=== PATIENT | male | born 1985 | race Caucasian/White ===

== ENCOUNTER 2017-11-13 07:58 | Emergency (ER) | payer MEDICAID ==
[~2017-11-13] VITALS: Ht 188 cm; Wt 127.0 kg
[~2017-11-13 07:58] MED LIST: ALLO-119 PO; ALLO100T70 PO; AMOX-362 PO; AMOX-559 PO; AMOX250S91 PO; ANXIETY; ANXIETY PO; ARIP2TAB9 PO; AZIT-1 PO; AZIT-18 PO; AZIT500T47 PO; BEN5 PO; BENZ100C4 PO; BUS5 PO; BUSP10TA95 PO; CEPH500C24 PO; CIPR-344 PO; CODE118S5 PO; DOXY-229 PO; HYDR-4240 PO; HYDR-6045 RC; HYDR25CA13 PO; HYDR50CA47 PO; IBUP-56 PO; IBUP200C71 PO; INDO-1 PO; INDO25 PO; INDO50CA92 PO; LOR5/325 PO; NAPR500T75 PO; NO ROUTINE MEDS; OLAN10TA21 PO; OLAN15TA19 PO; OMEP-137 PO; ONDA8TAB94 PO; OXYC-865 PO; PANT40TA65 PO; PER PO; PRE10 PO; PRED20TA6 PO; PROL PO; RISP-29 PO; RISP0.5T82 PO; ROBC PO; SERT-1 PO; SERT-173 PO; SERT20OR6 PO; TRAM-420 PO
--- NOTE | 2017-11-13 08:06 | ER Report ---
History and Physical Time Seen By MD: 08:06 HPI/ROS CC: Nausea vomiting HPI: 32-year-old male, Past medical history includes gouty arthritis bronchitis schizophrenia and GERD facial contusions and dental caries sinusitis presents to the emergency department and states that he's having nausea and vomiting from the coughing that he has persistently. He states that he was here approximately a month ago and was given Tessalon Perles. He states that the Tessalon Perles have made him nauseated. He is afebrile. He does not have any discharge from his nose. He is not experiencing an upper respiratory tract infection at this time. He states that he is slightly short of breath and which has been ongoing for the last month since he came in for his upper respiratory tract infection. He has not followed up with his PCP. He denies a productive cough. He denies any diarrhea. No fever chills. He is rating his pain scale as a 5 out of 10. No alleviating factors. Activity makes it worse. ROS: 12 point review of systems essentially negative other than what's mentioned in history of present illness. NURSES AND OLD MEDICAL RECORDS: Reviewed PMH: Reviewed SURGICAL HX: Reviewed FAMILY HX: Noncontributory SOCIAL HX: Lives at home denies smoking alcohol or illicit drugs. VITAL SIGNS: Reviewed CONSTITUTIONAL: 32-year-old male in minimal distress. PHYSICAL EXAM: HEENT: Pupils equal round reactive to light and accommodate, EOMI, tympanic membranes pearly white umbo present with good light reflex. Lips dry mucous membranes moist gums nonbleeding uvula midline and rises equally with phonation, oropharynx noninjected, teeth intact. NECK: Neck supple, thyroid not appreciated, anterior and posterior cervical lymphadenopathy not appreciated. Trachea midline and rises equally with phonation. CARDIAC: S1-S2 regular rate rhythm no murmurs rubs or gallops. LUNGS: Lungs clear bilaterally posteriorly in all tirado. Good air movement. ABDOMEN: Abdomen soft, nondistended, bowel sounds active in all 4 quadrants, no bruits noted, no CVA tenderness. MUSCULOSKELETAL: Strength 5 out of 5 x 4 extremities, no deformities noted. NEUROLOGIC: Patient alert and oriented by 3 Allergies: Coded Allergies: No Known Drug Allergies (Verified , 11/13/17) Home Meds Active Scripts Ondansetron (ZOFRAN ODT) 4 Mg Tab.rapdis, 8 MG PO Q6H Y for NAUSEA/VOMITING, # 20 TAB.RENA 0 Refills Prov:KECIA FRANCO MD 11/13/17 Benzonatate 100 Mg Cap (TESSALON PERLE 100 MG CAP) 100 Mg Capsule, 100 MG PO TID Y for COUGH, #15 CAP Prov:DI AL PA-C 10/29/17 Azithromycin (ZITHROMAX) 250 Mg Tablet, 0 PO QDAY, #6 TAB Prov:DI AL PA-C 10/29/17 Reported Medications Ibuprofen (IBUPROFEN) 200 Mg Tablet, 3-4 TAB PO Q8H Y for pain, #30 TAB 09/22/17 Buspirone Hcl (BUSPIRONE HCL) 10 Mg Tablet, 5 MG PO TID, TAB 03/16/17 Olanzapine (ZYPREXA) 10 Mg Tablet, 10 MG PO QHS 07/11/16 Sertraline Hcl (ZOLOFT) 50 Mg Tablet, 3 TAB PO QDAY, TAB 07/11/16 Discontinued Scripts Tramadol Hcl (TRAMADOL HCL) 50 Mg Tablet, 1 TAB PO Q6H Y for PAIN, #9 TAB Prov:HAY MOMIN DO 09/21/17 Hx Smoking: No Smoking Status: Never Smoker, Smoker: Status Unknown, Former Smoker Exposure to Second Hand Smoke?: No Hx Substance Use Disorder: No Hx Alcohol Use: No Constitutional Vital Sign - Last 24 Hours 11/13/17 08:05 Temp 98.5 Pulse 113 Resp 14 B/P (MAP) 142/105 Pulse Ox 94 O2 Delivery Room Air Medical Decision Making ED Course/Re-evaluation ED Course I discussed with the patient that his ears and throat nasal passages did not appear to be infected. Lungs are clear. I will give him Zofran for the nausea needs to follow-up with his PCP. Patient with a plan and agreement. Re-evaluation Medical decision making includes viral upper respiratory tract infection, nausea secondary to her Tessalon Perles, pneumonia. This most likely is nausea secondary to Tessalon Perles. Decision to Disposition Date: Nov 13, 2017 Decision to Disposition Time: 08:15 Depart Departure Latest Vital Signs Vital Signs Date Time Temp Pulse Resp B/P (MAP) Pulse Ox O2 Delivery O2 Flow Rate FiO2 11/13/17 08:05 98.5 113 14 142/105 94 Room Air Impression: Primary Impression: Nausea Condition: Condition Unchanged Disposition: HOME OR SELF-CARE Referrals: CARLITOS GUERRERO MD (PCP) New Scripts Ondansetron (ZOFRAN ODT) 4 Mg Tab.rapdis 8 MG PO Q6H Y for NAUSEA/VOMITING, #20 TAB.RENA 0 Refills Prov: KECIA FRANCO MD 11/13/17 Patient Instructions: Acute Nausea and Vomiting (ED) Additional Instructions: You have been Given Zofran take as directed. Follow-up with your PCP. I and the staff wanted to thank you for allowing us to take care of your needs today in the emergency department at [facility]. We have tried to answer all of your questions and concerns. Please feel free to return to the emergency department for any further concerns or unanswered questions. KECIA FRANCO MD Nov 13, 2017 08:06
[2017-11-13] MEDS ORDERED: ONDA4TAB PO (08:17)
[2017-11-13 08:20] VITALS: BP 134/97
== END 2017-11-13 08:21 | disposition home or self-care (01) ==
LOC: ER 08:20
DX: R11.0 Nausea (principal)
CPT/HCPCS: 99282

== ENCOUNTER → 2018-02-27 | Outpatient (CLI) | payer MEDICAID ==
[~2018-02-27] MED LIST changes: -BEN5 PO; +BENZ0.5T19 PO; +FLUT16SP19 NS; +ONDA4TAB PO
== END ==
LOC: LAB 15:49
PROVIDERS: ATTEND Internal Medicine
DX: J02.9 Acute pharyngitis, unspecified (principal); J06.9 Acute upper respiratory infection, unspecified
CPT/HCPCS: 87070

== ENCOUNTER 2018-03-12 14:02 | Emergency (ER) | payer MEDICAID ==
--- NOTE | 2018-03-12 14:11 | ER Report ---
History and Physical Time Seen By MD: 14:10 HPI/ROS CHIEF COMPLAINT: Right foot pain and swelling, fevers HISTORY OF PRESENT ILLNESS: 32-year-old male patient presents to emergency room with complaint of right foot pain. Patient states that he has been having pain since he woke up this morning. He states when he woke up his right foot was swollen and had a shot into it. Patient states that he's been having significant amounts pain since then. He denies having any injury. He states that his dog to sleep on the bed was concerned they may have put the foot and awkward position. Patient denies any trauma to the foot. He does have a history of gout in the past. Patient denies having any nausea, vomiting or diarrhea. Patient states he has had a fever up to 100.8 recently. He states that he is having some sinus problems. REVIEW OF SYSTEMS: Respiratory: No cough, no dyspnea. Cardiovascular: No chest pain, no palpitations. Gastrointestinal: No vomiting, no abdominal pain. Musculoskeletal: As noted above Allergies: Coded Allergies: No Known Drug Allergies (Verified , 03/12/18) Home Meds Active Scripts Amoxicillin/Pot Clav 875-125 Mg Tab (AUGMENTIN 875-125 TABLET) 1 Each Tablet, 1 TAB PO Q12H, #20 TAB Prov:AGUSTÍN HIRSCH [facility] 03/12/18 Ketorolac Tromethamine (KETOROLAC TROMETHAMINE) 10 Mg Tab, 10 MG PO Q6H, #20 TAB Prov:AGUSTÍN HIRSCH 03/12/18 Fluticasone Prop 50 Mcg Ns (FLONASE 50 MCG NS) 16 Gm [place].susp, 2 SPRAYS NS QDAY, #1 BOT 3 Refills Prov:CARLITOS GUERRERO MD 02/27/18 Reported Medications Buspirone Hcl (BUSPIRONE HCL) 10 Mg Tablet, 5 MG PO TID, TAB 03/16/17 Olanzapine (ZYPREXA) 10 Mg Tablet, 10 MG PO QHS 07/11/16 Sertraline Hcl (ZOLOFT) 50 Mg Tablet, 3 TAB PO QDAY, TAB 07/11/16 Discontinued Scripts Ondansetron (ZOFRAN ODT) 4 Mg Tab.rapdis, 8 MG PO Q6H Y for NAUSEA/VOMITING, # 20 TAB.RENA 0 Refills Prov:CARLITOS GUERRERO MD 02/27/18 Benzonatate 100 Mg Cap (TESSALON PERLE 100 MG CAP) 100 Mg Capsule, 100 MG PO TID Y for COUGH, #15 CAP Prov:CARLITOS GUERRERO MD 02/27/18 Past Medical/Surgical History Patient has a past medical history of migraines, hypertension, asthma, gout, anxiety, depression, bipolar, suicide attempt. Patient denies any surgical history. Reviewed Nurses Notes: Yes Hx Smoking: No Smoking Status: Never Smoker, Smoker: Status Unknown, Former Smoker Exposure to Second Hand Smoke?: No Hx Substance Use Disorder: No Hx Alcohol Use: No Constitutional Vital Sign - Last 24 Hours 03/12/18 03/12/18 03/12/18 03/12/18 14:08 14:09 15:02 15:32 Temp 94.6 Pulse 105 85 84 Resp 22 B/P (MAP) 132/91 132/91 (105) Pulse Ox 98 91 96 O2 Delivery Room Air 03/12/18 03/12/18 15:41 15:43 Pulse 96 B/P (MAP) 126/79 (95) 126/79 (95) Pulse Ox 94 O2 Delivery Room Air Physical Exam General Appearance: The patient is alert, has no immediate need for airway protection and no current signs of toxicity. Respiratory: Chest is non tender, lungs are clear to auscultation. Cardiac: regular rate and rhythm Gastrointestinal: Abdomen is soft and non tender, no masses, bowel sounds normal. Musculoskeletal: Neck: Neck is supple and non tender. Extremities have full range of motion and are non tender. Patient has tenderness to the lateral aspect of the right foot, there is no swelling or bruising noted. Skin: No rashes or lesions. DIFFERENTIAL DIAGNOSIS: After history and physical exam differential diagnosis was considered for contusion, sprain, gout flare, fracture, sinusitis, pneumonia , urinary tract infection. Medical Decision Making Data Points Result Diagram: 03/12/18 1428 03/12/18 1428 Laboratory Hematology Test 03/12/18 14:28 Red Blood Count 6.03 M/uL (4.00-5.60) Mean Corpuscular Volume 77.9 fL (80.0-96.0) Mean Corpuscular Hemoglobin 26.8 pg (26.0-33.0) Mean Corpuscular Hemoglobin Concent 34.4 g/dL (32.0-36.0) Red Cell Distribution Width 14.3 % (11.5-14.5) Mean Platelet Volume 8.4 fL (7.2-11.1) Neutrophils (%) (Auto) 72.9 % (39.4-72.5) Lymphocytes (%) (Auto) 16.8 % (17.6-49.6) Monocytes (%) (Auto) 8.5 % (4.1-12.4) Eosinophils (%) (Auto) 1.1 % (0.4-6.7) Basophils (%) (Auto) 0.7 % (0.3-1.4) Nucleated RBC Relative Count (auto) 0.5 /100WBC Neutrophils # (Auto) 10.2 K/uL (2.0-7.4) Lymphocytes # (Auto) 2.3 K/uL (1.3-3.6) Monocytes # (Auto) 1.2 K/uL (0.3-1.0) Eosinophils # (Auto) 0.2 K/uL (0.0-0.5) Basophils # (Auto) 0.1 K/uL (0.0-0.1) Nucleated RBC Absolute Count (auto) 0.06 K/uL Peripheral Blood Smear No Y/N Sodium Level 140 mmol/L (137-145) Potassium Level 4.1 mmol/L (3.5-5.0) Chloride Level 101 mmol/L (98-107) Carbon Dioxide Level 24 mmol/L (22-30) Blood Urea Nitrogen 10 mg/dl (9-21) Creatinine 0.90 mg/dl (0.66-1.25) Glomerular Filtration Rate Calc > 60.0 Random Glucose 144 mg/dl (75-110) Calcium Level 9.9 mg/dl (8.4-10.2) Total Bilirubin 1.0 mg/dl (0.2-1.3) Aspartate Amino Transf (AST/SGOT) 28 U/L (0-35) Alanine Aminotransferase (ALT/SGPT) 46 U/L (0-56) Alkaline Phosphatase 115 U/L (0-126) Total Protein 8.0 gm/dl (6.3-8.2) Albumin 4.4 g/dl (3.5-5.0) Chemistry Test 03/12/18 14:28 White Blood Count 14.0 k/uL (4.5-11.0) Red Blood Count 6.03 M/uL (4.00-5.60) Hemoglobin 16.2 g/dL (14.0-18.0) Hematocrit 47.0 % (42.0-52.0) Mean Corpuscular Volume 77.9 fL (80.0-96.0) Mean Corpuscular Hemoglobin 26.8 pg (26.0-33.0) Mean Corpuscular Hemoglobin Concent 34.4 g/dL (32.0-36.0) Red Cell Distribution Width 14.3 % (11.5-14.5) Platelet Count 258 K/uL (150-450) Mean Platelet Volume 8.4 fL (7.2-11.1) Neutrophils (%) (Auto) 72.9 % (39.4-72.5) Lymphocytes (%) (Auto) 16.8 % (17.6-49.6) Monocytes (%) (Auto) 8.5 % (4.1-12.4) Eosinophils (%) (Auto) 1.1 % (0.4-6.7) Basophils (%) (Auto) 0.7 % (0.3-1.4) Nucleated RBC Relative Count (auto) 0.5 /100WBC Neutrophils # (Auto) 10.2 K/uL (2.0-7.4) Lymphocytes # (Auto) 2.3 K/uL (1.3-3.6) Monocytes # (Auto) 1.2 K/uL (0.3-1.0) Eosinophils # (Auto) 0.2 K/uL (0.0-0.5) Basophils # (Auto) 0.1 K/uL (0.0-0.1) Nucleated RBC Absolute Count (auto) 0.06 K/uL Peripheral Blood Smear No Y/N Glomerular Filtration Rate Calc > 60.0 Calcium Level 9.9 mg/dl (8.4-10.2) Total Bilirubin 1.0 mg/dl (0.2-1.3) Aspartate Amino Transf (AST/SGOT) 28 U/L (0-35) Alanine Aminotransferase (ALT/SGPT) 46 U/L (0-56) Alkaline Phosphatase 115 U/L (0-126) Total Protein 8.0 gm/dl (6.3-8.2) Albumin 4.4 g/dl (3.5-5.0) EKG/Imaging Imaging 2 VIEWS CHEST INDICATION: Fever COMPARISON: 10/29/2017. FINDINGS: Cardiomediastinal silhouette and pulmonary vessels within normal limits. There is no focal infiltrate or lobar consolidation. There is no pneumothorax or pleural effusion. No nodule. Upper abdomen is unremarkable. No acute bony abnormality. IMPRESSION: 1. No acute cardiopulmonary process. Report Dictated By: Tk Santizo at 03/12/2018 3:14 PM Report E-Signed By: Tk Santizo at 03/12/2018 3:16 PM FOOT 3 VIEW RIGHT Indication: Right foot pain and swelling. Comparison: 09/21/2014. Findings: 3 views of the right foot were obtained. No acute fracture or dislocation. Benign stable bone island in the distal second metatarsal and a small bone island in distal tibia. No other bony lesions. No appreciable degenerative changes. No periosteal abnormality. Soft tissues show no radiopaque foreign body. IMPRESSION: 1.No acute osseous abnormality of the right foot Report Dictated By: Tk Santizo at 03/12/2018 3:16 PM Report E-Signed By: Tk Santizo at 03/12/2018 3:19 PM ED Course/Re-evaluation ED Course Patient was admitted to exam room, history and physical were obtained. Differential diagnoses were considered. On examination lungs are clear, heart is regular, there is no obvious swelling, erythema noted to the right foot. With complaint of fevers a chest x-ray, CBC, CMP were done. The imaging results were negative, the labs showed a white count of 14,000 with left shift. X-ray of the right foot showed no acute fractures. I discussed the findings with the patient. I believe this is likely a sinusitis with right foot pain. The foot pain could very well be secondary to gout. We will go ahead and treat the foot pain with Toradol and treat the sinusitis with Augmentin. Patient and his mother both verbalized understanding and agreement with plan. He is follow-up with his primary care provider in the next week. Decision to Disposition Date: Mar 12, 2018 Decision to Disposition Time: 15:29 Depart Departure Latest Vital Signs Vital Signs Date Time Temp Pulse Resp B/P (MAP) Pulse Ox O2 Delivery O2 Flow Rate FiO2 03/12/18 15:43 96 126/79 (95) 94 Room Air 03/12/18 14:08 94.6 22 Impression: Primary Impression: Foot pain Additional Impression: Sinusitis, acute Condition: Improved Disposition: HOME OR SELF-CARE Referrals: CARLITOS GUERRERO MD (PCP) New Scripts Amoxicillin/Pot Clav 875-125 Mg Tab (AUGMENTIN 875-125 TABLET) 1 Each Tablet 1 TAB PO Q12H, #20 TAB Prov: AGUSTÍN HIRSCH 03/12/18 Ketorolac Tromethamine (KETOROLAC TROMETHAMINE) 10 Mg Tab 10 MG PO Q6H, #20 TAB Prov: AGUSTÍN HIRSCH 03/12/18 Patient Instructions: Sinusitis (ED) Additional Instructions: Increase fluid intake. Get plenty of rest. Limit activity by pain. Wear the post-op shoe when you are moving around. Ice the foot 2-3 times a day. Take Decongestant of choice. Don't take any Aleve, Ibuprofen or Motrin in addition to the Toradol. You may take Tylenol as needed for pain, but must be 3000mg or less a day. Problem Qualifiers Primary Impression: Foot pain Laterality: right Qualified Codes: M79.671 - Pain in right foot Additional Impression: Sinusitis, acute Sinusitis location: maxillary Recurrence: non-recurrent Qualified Codes: J01.00 - Acute maxillary sinusitis, unspecified AGUSTÍN HIRSCH Mar 12, 2018 14:11
[2018-03-12 14:34] LABS: PLATELET COUNT, AUTOMATED 258 K/uL (150-450)
--- NOTE | 2018-03-12 15:20 | RADIOLOGY IMAGING REPORT ---
FACILITY: [facility] [place] PATIENT NAME: Jermaine Frederick : 1985 MR: [id number] V: [id number] EXAM DATE: ORDERING PHYSICIAN: AGUSTÍN HIRSCH TECHNOLOGIST: Location: [facility] [place] Patient: Jermaine Frederick : 1985 Visit/Account:[id number] Date of Sevice: 03/12/2018 2 VIEWS CHEST INDICATION: Fever COMPARISON: 10/29/2017. FINDINGS: Cardiomediastinal silhouette and pulmonary vessels within normal limits. There is no focal infiltrate or lobar consolidation. There is no pneumothorax or pleural effusion. No nodule. Upper abdomen is unremarkable. No acute bony abnormality. IMPRESSION: 1. No acute cardiopulmonary process. Report Dictated By: Tk Santizo at 03/12/2018 3:14 PM Report E-Signed By: Tk Santizo at 03/12/2018 3:16 PM WSN:[id number]
--- NOTE | 2018-03-12 15:23 | RADIOLOGY IMAGING REPORT ---
FACILITY: [facility] - [place], [place] PATIENT NAME: Jermaine Frdeerick : 1985 MR: [id number] V: [id number] EXAM DATE: ORDERING PHYSICIAN: AGUSTÍN HIRSCH TECHNOLOGIST: Location: [facility] Patient: Jermaine Frederick : 1985 Visit/Account:[id number] Date of Sevice: 03/12/2018 FOOT 3 VIEW RIGHT Indication: Right foot pain and swelling. Comparison: 09/21/2014. Findings: 3 views of the right foot were obtained. No acute fracture or dislocation. Benign stable bone island in the distal second metatarsal and a sma ll bone island in distal tibia. No other bony lesions. No appreciable degenerative changes. No perios teal abnormality. Soft tissues show no radiopaque foreign body. IMPRESSION: 1.No acute osseous abnormality of the right foot Report Dictated By: Tk Santizo at 03/12/2018 3:16 PM Report E-Signed By: Tk Santizo at 03/12/2018 3:19 PM WSN:[id number]
[2018-03-12] MEDS ORDERED: KET10 PO (15:27)
[2018-03-12] MEDS ORDERED: AMOX-559 PO (15:27)
[2018-03-12 15:43] VITALS: BP 126/79
== END 2018-03-12 15:45 | disposition home or self-care (01) ==
LOC: ER 14:07
DX: J01.00 Acute maxillary sinusitis, unspecified (principal); M79.641 Pain in right hand
CPT/HCPCS: 71046; 82040; 82247; 82310; 82374; 82435; 82565; 82947; 84075; 84132; 84155; 84295; 84450; 84460; 84520; 85025; 99283

== ENCOUNTER 2018-06-02 20:35 | Emergency (ER) | payer MEDICAID ==
[~2018-06-02 20:35] MED LIST changes: +IBUP-136 PO; -IBUP200C71 PO; +INDO-23 PO; -INDO50CA92 PO; +KET10 PO; -PROL PO; +PROM6.2522 PO
[2018-06-02 20:38] VITALS: BP 134/99
--- NOTE | 2018-06-02 20:38 | ER Report ---
History and Physical Time Seen By MD: 20:36 HPI/ROS CHIEF COMPLAINT: Right foot swelling and pain HISTORY OF PRESENT ILLNESS: 32-year-old male presents ambulatory to the ER complaining of right foot swelling for several weeks. He states his dog laid down on his foot. His dog weighs 102 pounds. He states he sprained his ankle and sustained crushing injury to his foot. It is swelled up and not gone down. He continues to have pain in his foot. Patient does have a history of gout. He states this feels different. Usually gout affects his great toe. Patient notes no pain in his knee. He denies other injuries. He notes no erythema or warmth. He notes significant pain in the 3rd, 4th and 5th digits. Allergies: Coded Allergies: No Known Drug Allergies (Verified , 03/12/18) Home Meds Active Scripts Prednisone 10 Mg Tab (PREDNISONE 10 MG TAB) 10 Mg Tablet, 10 MG PO QDAY Y for reduce inflammation, #7 1 tab daily for 7 days Prov:HAY MOMIN DO 06/02/18 Fluticasone Prop 50 Mcg Ns (FLONASE 50 MCG NS) 16 Gm [place].susp, 2 SPRAYS NS QDAY, #1 BOT 3 Refills Prov:CARLITOS GUERRERO MD 02/27/18 Reported Medications Buspirone Hcl (BUSPIRONE HCL) 10 Mg Tablet, 5 MG PO TID, TAB 03/16/17 Olanzapine (ZYPREXA) 10 Mg Tablet, 10 MG PO QHS 07/11/16 Sertraline Hcl (ZOLOFT) 50 Mg Tablet, 3 TAB PO QDAY, TAB 07/11/16 Discontinued Scripts Amoxicillin/Pot Clav 875-125 Mg Tab (AUGMENTIN 875-125 TABLET) 1 Each Tablet, 1 TAB PO Q12H, #20 TAB Prov:AGUSTÍN HIRSCH 03/12/18 Ketorolac Tromethamine (KETOROLAC TROMETHAMINE) 10 Mg Tab, 10 MG PO Q6H, #20 TAB Prov:AGUSTÍN HIRSCH 03/12/18 Reviewed Nurses Notes: Yes Old Medical Records Reviewed: Yes Hx Smoking: No Smoking Status: Never Smoker, Smoker: Status Unknown, Former Smoker Exposure to Second Hand Smoke?: No Hx Substance Use Disorder: No Hx Alcohol Use: No Constitutional Vital Sign - Last 24 Hours 06/02/18 20:38 Temp 98.1 Pulse 109 Resp 16 B/P (MAP) 134/99 Pulse Ox 97 O2 Delivery Room Air Physical Exam General appearance: Alert no distress. Respiratory: Chest is non tender, lungs are clear to auscultation. Cardiac: Regular rate and rhythm Extremities: Examination of the right lower extremity reveals significant soft tissue swelling. There is neurovascularly intact. Lungs in all digits. There is significant pain and tenderness with palpation of the lateral aspect of the entire foot. The ankle is unremarkable on palpation. Achilles tendon is unremarkable on palpation DIFFERENTIAL DIAGNOSIS: After history and physical exam differential diagnosis was considered for sprain, strain, fracture, dislocation, contusion, gout, foot sprain, overuse syndrome Medical Decision Making EKG/Imaging Imaging X-ray: Right foot, 3 views was obtained. I viewed the images myself on the PACS system. My interpretation of the images is: No fracture no dislocation or malalignment. The radiologist interpretation had no clinically significant variation from this interpretation. ED Course/Re-evaluation ED Course Patient was minute to an examination room. H&P was done. The differential diagnoses was considered. On clinical examination. Patient has a swollen right foot. Is extremely tender to palpation. Diagnostic x-rays are unremarkable for obvious fracture. Patient's advised to conservative treatment plan. Patient advised ibuprofen 600 mg 3 times daily and heat to his foot, especially hot soaks. He'll be given a prednisone burst of 10 mg per day for 7 days. Patient advised to follow-up with primary care if unimproved in one week. Decision to Disposition Date: Jun 02, 2018 Decision to Disposition Time: 21:09 Depart Departure Latest Vital Signs Vital Signs Date Time Temp Pulse Resp B/P (MAP) Pulse Ox O2 Delivery O2 Flow Rate FiO2 06/02/18 20:38 98.1 109 16 134/99 97 Room Air Impression: Primary Impression: Right foot sprain Condition: Improved Disposition: HOME OR SELF-CARE Referrals: CARLITOS GUERRERO MD (PCP) New Scripts Prednisone 10 Mg Tab (PREDNISONE 10 MG TAB) 10 Mg Tablet 10 MG PO QDAY Y for reduce inflammation, #7 1 tab daily for 7 days Prov: HAY MOMIN Aleksandar DO 06/02/18 Patient Instructions: Foot Sprain (ED) Additional Instructions: Take ibuprofen 200 mg 3 tablets 3 times a day Elevate your foot Apply a heating pad or perform hot soaks with your foot in a bucket Follow-up with primary care if unimproved in 3-5 days. Problem Qualifiers Primary Impression: Right foot sprain Encounter type: initial encounter Qualified Codes: S93.601A - Unspecified sprain of right foot, initial encounter HAY MOMIN DO Jun 02, 2018 20:37
--- NOTE | 2018-06-02 21:10 | RADIOLOGY IMAGING REPORT ---
FACILITY: [facility] PATIENT NAME: Jermaine Frederick : 1985 MR: [id number] V: [id number] EXAM DATE: ORDERING PHYSICIAN: HAY MOMIN TECHNOLOGIST: Location: [facility] Patient: Jermaine Frederick : 1985 Visit/Account:[id number] Date of Sevice: 06/02/2018 EXAMINATION: Right foot radiographs 3 views HISTORY: Injury, swollen. COMPARISON: 03/12/2018. FINDINGS: AP, lateral and oblique views of the right foot are obtained. Bones: No acute fracture. Small enthesophytes at the Achilles insertion on the calcaneus. Unchanged bone island in the second metatarsal. Joint spaces: Negative. Hardware: None. Alignment: Normal. Soft tissues: Negative. IMPRESSION: No acute right foot fracture. Report Dictated By: Matt Fields MD at 06/02/2018 9:03 PM Report E-Signed By: Matt Fields MD at 06/02/2018 9:06 PM WSN:[id number]
[2018-06-02] MEDS ORDERED: PRED-1 PO (21:14)
== END 2018-06-02 21:29 | disposition home or self-care (01) ==
LOC: ER 20:44
DX: S93.601A Unspecified sprain of right foot, initial encounter (principal)
CPT/HCPCS: 99283

== ENCOUNTER → 2018-06-16 | Outpatient (CLI) | payer MEDICAID ==
[~2018-06-16] MED LIST changes: +PRED-1 PO
== END ==
LOC: LAB 14:42
PROVIDERS: ATTEND Nurse Practitioner Primary Care
DX: M54.9 Dorsalgia, unspecified (principal)
CPT/HCPCS: 81001

== ENCOUNTER 2018-07-01 01:40 | Emergency (ER) | payer MEDICAID ==
--- NOTE | 2018-07-01 01:59 | ER Report ---
History and Physical Time Seen By MD: 02:01 HPI/ROS CHIEF COMPLAINT: cough, sinus problems HISTORY OF PRESENT ILLNESS: This is a 32 year old male. He has been having worsening cough. Has finished a course of Augmentin for sinusitis, and now cough is worsening. Coughing so much he is throwing up. Has chest congestion and tightness. Fevers. Denies abdominal pain. Allergies: Coded Allergies: No Known Drug Allergies (Verified , 07/01/18) Home Meds Active Scripts Guaifenesin/Codeine (GUAIFENESIN-CODEINE SYRUP) 5 Ml Syrp, 5 ML PO Q6H Y for COUGH, #120 ML 0 Refills Prov:RAMONE PACHECO MD 07/01/18 Doxycycline Hyclate (DOXYCYCLINE HYCLATE) 100 Mg Tablet, 100 MG PO BID for 10 Days, #20 TAB 0 Refills Prov:RAMONE PACHECO MD 07/01/18 Amoxicillin/Pot Clav 875-125 Mg Tab (AUGMENTIN 875-125 TABLET) 1 Each Tablet, 1 TAB PO BID for 10 Days, #20 TAB 0 Refills Prov:RC NEWMAN DNP, SIGNAL INTELLIGENCE ANALYST-BC 06/16/18 Fluticasone Prop 50 Mcg Ns (FLONASE 50 MCG NS) 16 Gm [place].susp, 2 SPRAYS NS QDAY, #1 BOT 3 Refills Prov:CARLITOS GUERRERO MD 02/27/18 Reported Medications Buspirone Hcl (BUSPIRONE HCL) 10 Mg Tablet, 5 MG PO TID, TAB 03/16/17 Olanzapine (ZYPREXA) 10 Mg Tablet, 10 MG PO QHS 07/11/16 Sertraline Hcl (ZOLOFT) 50 Mg Tablet, 3 TAB PO QDAY, TAB 07/11/16 Reviewed Nurses Notes: Yes Hx Smoking: No Smoking Status: Never Smoker, Smoker: Status Unknown, Former Smoker Exposure to Second Hand Smoke?: No Hx Substance Use Disorder: No Hx Alcohol Use: No Constitutional Vital Sign - Last 24 Hours 07/01/18 07/01/18 07/01/18 07/01/18 01:43 01:55 02:10 02:25 Temp 98.9 Pulse 105 101 102 101 Resp 16 B/P (MAP) 113/93 Pulse Ox 98 95 96 97 O2 Delivery Room Air 8/1807/01/18 07/01/18 07/01/18 02:27 02:30 02:55 03:00 Pulse 93 B/P (MAP) 119/83 (95) 127/94 (105) 120/89 (99) Pulse Ox 93 07/01/18 07/01/18 07/01/18 07/01/18 03:10 03:17 03:22 03:30 Pulse 99 ??? 78 B/P (MAP) 116/91 (99) Pulse Ox 95 93 97 07/01/18 07/01/18 03:37 03:52 Pulse 88 79 Pulse Ox 96 97 Physical Exam General Appearance: The patient is alert. No acute distress. Eyes: Pupils are equal, round. No pallor, injection or icterus. ENT: Mucous membranes are moist. Sinus pressure. Nasal passages very erythematous and inflamed. Post-nasal drainage is thick and purulent. TMs with effusions. Neck: Supple and non tender. Has anterior cervical lymphadenopathy. Respiratory: Lungs with rhonchi, no wheezing or rales. Cardiovascular: Regular rate and rhythm. No murmurs, gallops or rubs. Normal capillary refill. Gastrointestinal: Abdomen is soft and non tender. Nondistended. Normal active bowel sounds. Neurological: Alert and oriented x3. Skin: Warm and diaphoretic. DIFFERENTIAL DIAGNOSIS: After history and physical exam, differential diagnosis was considered for a patient with ongoing symptoms of sinusitis, possibly worsening with pneumonia. Medical Decision Making Data Points Result Diagram: 07/01/1821107/01/18 021 Laboratory Hematology Test 07/01/18 02:12 Red Blood Count 5.83 M/uL (4.00-5.60) Mean Corpuscular Volume 78.6 fL (80.0-96.0) Mean Corpuscular Hemoglobin 27.2 pg (26.0-33.0) Mean Corpuscular Hemoglobin Concent 34.6 g/dL (32.0-36.0) Red Cell Distribution Width 14.7 % (11.5-14.5) Mean Platelet Volume 8.6 fL (7.2-11.1) Neutrophils (%) (Auto) 61.2 % (39.4-72.5) Lymphocytes (%) (Auto) 30.2 % (17.6-49.6) Monocytes (%) (Auto) 6.4 % (4.1-12.4) Eosinophils (%) (Auto) 1.5 % (0.4-6.7) Basophils (%) (Auto) 0.7 % (0.3-1.4) Nucleated RBC Relative Count (auto) 0.1 /100WBC Neutrophils # (Auto) 6.6 K/uL (2.0-7.4) Lymphocytes # (Auto) 3.2 K/uL (1.3-3.6) Monocytes # (Auto) 0.7 K/uL (0.3-1.0) Eosinophils # (Auto) 0.2 K/uL (0.0-0.5) Basophils # (Auto) 0.1 K/uL (0.0-0.1) Nucleated RBC Absolute Count (auto) 0.01 K/uL Erythrocyte Sedimentation Rate 4 mm/HOUR (0-15) Sodium Level 142 mmol/L (137-145) Potassium Level 3.8 mmol/L (3.5-5.0) Chloride Level 101 mmol/L (98-107) Carbon Dioxide Level 27 mmol/L (22-30) Blood Urea Nitrogen 10 mg/dl (9-21) Creatinine 0.90 mg/dl (0.66-1.25) Glomerular Filtration Rate Calc > 60.0 Random Glucose 139 mg/dl (75-110) Lactate 2.7 mmol/L (0.7-2.1) Calcium Level 9.7 mg/dl (8.4-10.2) Total Bilirubin 0.5 mg/dl (0.2-1.3) Aspartate Amino Transf (AST/SGOT) 29 U/L (0-35) Alanine Aminotransferase (ALT/SGPT) 43 U/L (0-56) Alkaline Phosphatase 101 U/L (0-126) Total Protein 7.8 g/dl (6.3-8.2) Albumin 4.8 g/dl (3.5-5.0) Chemistry Test 07/01/18 02:12 White Blood Count 10.7 k/uL (4.5-11.0) Red Blood Count 5.83 M/uL (4.00-5.60) Hemoglobin 15.8 g/dL (14.0-18.0) Hematocrit 45.8 % (42.0-52.0) Mean Corpuscular Volume 78.6 fL (80.0-96.0) Mean Corpuscular Hemoglobin 27.2 pg (26.0-33.0) Mean Corpuscular Hemoglobin Concent 34.6 g/dL (32.0-36.0) Red Cell Distribution Width 14.7 % (11.5-14.5) Platelet Count 252 K/uL (150-450) Mean Platelet Volume 8.6 fL (7.2-11.1) Neutrophils (%) (Auto) 61.2 % (39.4-72.5) Lymphocytes (%) (Auto) 30.2 % (17.6-49.6) Monocytes (%) (Auto) 6.4 % (4.1-12.4) Eosinophils (%) (Auto) 1.5 % (0.4-6.7) Basophils (%) (Auto) 0.7 % (0.3-1.4) Nucleated RBC Relative Count (auto) 0.1 /100WBC Neutrophils # (Auto) 6.6 K/uL (2.0-7.4) Lymphocytes # (Auto) 3.2 K/uL (1.3-3.6) Monocytes # (Auto) 0.7 K/uL (0.3-1.0) Eosinophils # (Auto) 0.2 K/uL (0.0-0.5) Basophils # (Auto) 0.1 K/uL (0.0-0.1) Nucleated RBC Absolute Count (auto) 0.01 K/uL Erythrocyte Sedimentation Rate 4 mm/HOUR (0-15) Glomerular Filtration Rate Calc > 60.0 Lactate 2.7 mmol/L (0.7-2.1) Calcium Level 9.7 mg/dl (8.4-10.2) Total Bilirubin 0.5 mg/dl (0.2-1.3) Aspartate Amino Transf (AST/SGOT) 29 U/L (0-35) Alanine Aminotransferase (ALT/SGPT) 43 U/L (0-56) Alkaline Phosphatase 101 U/L (0-126) Total Protein 7.8 g/dl (6.3-8.2) Albumin 4.8 g/dl (3.5-5.0) EKG/Imaging Imaging HISTORY: Fever. DATE: 07/01/2018 2:44 AM TECHNIQUE: CHEST PA AND LAT COMPARISON: none FINDINGS: The cardiomediastinal silhouette is of normal size and contour. No pleural effusion. No pneumothorax. No consolidation. The lungs are adequately expanded. IMPRESSION: Normal chest. Report Dictated By: Santy Edwards MD at 07/01/2018 2:53 AM ED Course/Re-evaluation ED Course Will start Doxycycline 100mg twice a day and use guaifenesin with codeine for cough. continue with flonase. Add nasal saline. Decision to Disposition Date: Jul 01, 2018 Decision to Disposition Time: 03:42 Depart Departure Latest Vital Signs Vital Signs Date Time Temp Pulse Resp B/P (MAP) Pulse Ox O2 Delivery O2 Flow Rate FiO2 07/01/18 03:52 79 97 07/01/18 03:30 116/91 (99) 07/01/18 01:43 98.9 16 Room Air Impression: Primary Impression: Sinusitis Condition: Condition Unchanged Disposition: HOME OR SELF-CARE Referrals: CARLITOS GUERRERO MD (PCP) New Scripts Guaifenesin/Codeine (GUAIFENESIN-CODEINE SYRUP) 5 Ml Syrp 5 ML PO Q6H Y for COUGH, #120 ML 0 Refills Prov: RAMONE PACHECO MD 07/01/18 Doxycycline Hyclate (DOXYCYCLINE HYCLATE) 100 Mg Tablet 100 MG PO BID for 10 Days, #20 TAB 0 Refills Prov: RAMONE PACHECO MD 07/01/18 Patient Instructions: Sinusitis (ED) Additional Instructions: Take Doxycycline 100mg twice a day for 10 days. Take Guaifenesin with Codeine syrup, 1 teaspoon every 4 hours as needed for cough. Rest and increase fluids for the next few days. Problem Qualifiers Primary Impression: Sinusitis Sinusitis location: unspecified location Chronicity: subacute Qualified Codes: J01.90 - Acute sinusitis, unspecified RAMONE PACHECO MD Jul 01, 2018 01:59
[2018-07-01] MEDS ORDERED: NS(*) 0.9% 1000 ML BAG 1,000 ML IV ONE (02:10)
[2018-07-01] MEDS ORDERED: ONDANSETRON 4 MG/2 ML VIAL IVP ONE (02:10)
[2018-07-01 02:28] LABS: PLATELET COUNT, AUTOMATED 252 K/uL (150-450)
--- NOTE | 2018-07-01 03:21 | RADIOLOGY IMAGING REPORT ---
FACILITY: [facility] - [place] PATIENT NAME: Jermaine Frederick : 1985 MR: [id number] V: [id number] EXAM DATE: ORDERING PHYSICIAN: RAMONE PACHECO TECHNOLOGIST: Location: [facility] [place] Patient: Jermaine Frederick : 1985 Visit/Account:[id number] Date of Sevice: 07/01/2018 HISTORY: Fever. DATE: 07/01/2018 2:44 AM TECHNIQUE: CHEST PA AND LAT COMPARISON: none FINDINGS: The cardiomediastinal silhouette is of normal size and contour. No pleural effusion. No pne umothorax. No consolidation. The lungs are adequately expanded. IMPRESSION: Normal chest. Report Dictated By: Santy Edwards MD at 07/01/2018 2:53 AM Report E-Signed By: Santy Edwards MD at 07/01/2018 2:53 AM WSN:[id number]
[2018-07-01 03:30] VITALS: BP 116/91
[2018-07-01] MEDS ORDERED: ROBC PO (03:45)
[2018-07-01] MEDS ORDERED: DOXY-179 PO (03:45)
[2018-07-01] MEDS ORDERED: guaiFENesin/CODEINE 5 ML UDBTL PO ONE (03:45)
== END 2018-07-01 04:05 | disposition home or self-care (01) ==
LOC: ER 01:50
DX: J01.90 Acute sinusitis, unspecified (principal); R50.9 Fever, unspecified
CPT/HCPCS: 71046; 83605; 85025; 85651; 96361; 96374; 99284; J2405; J7030; 82040; 82247; 82310; 82374; 82435; 82565; 82947; 84075; 84132; 84155; 84295; 84450; 84460; 84520

== ENCOUNTER 2018-07-20 14:28 | Outpatient (RCR) | payer MEDICAID ==
[2018-07-19 16:42] LABS: PLATELET COUNT, AUTOMATED 207 K/uL (150-450)
--- NOTE | 2018-07-19 16:52 | RADIOLOGY IMAGING REPORT ---
FACILITY: [facility] PATIENT NAME: Jermaine Frederick : 1985 MR: [id number] V: [id number] EXAM DATE: ORDERING PHYSICIAN: HARJINDER MCCRAY TECHNOLOGIST: [place] [facility] [place] Patient: Jermaine Frederick : 1985 Visit/Account:[id number] Date of Sevice: 07/19/2018 Exam type: CHEST PA AND LAT History: Cough Comparison: July 01, 2018. Findings: The lungs are free of acute effusions, infiltrates or edema. Cardiac silhouette is normal in size. The trachea is in midline. IMPRESSION: 1. No acute cardiopulmonary process is seen Report Dictated By: Kell Marin MD at 07/19/2018 4:47 PM Report E-Signed By: Kell Marin MD at 07/19/2018 4:48 PM WSN:[id number]
[~2018-07-20 14:28] MED LIST changes: +DOXY-179 PO
--- NOTE | 2018-07-21 10:49 | RADIOLOGY IMAGING REPORT ---
FACILITY: [facility] PATIENT NAME: Jermaine Frederick : 1985 MR: [id number] V: [id number] EXAM DATE: ORDERING PHYSICIAN: HARJINDER MCCRAY TECHNOLOGIST: Location: [facility] - [place] Patient: Jermaine Frederick : 1985 Visit/Account:[id number] Date of Sevice: 07/21/2018 CHEST W/O CONTRAST History: cough TECHNIQUE: Contiguous axial images were performed through the chest to the level of the adrenal gla nds. No IV contrast was administered. Coronal and sagittal reformatting was also performed. Dose Lowe ring Technique One of the following dose optimization techniques was utilized in the performance of this exam: Autom ated exposure control; adjustment of the mA and/or kV according to the patient's size; or use of an i terative reconstruction technique. Specific details can be referenced in the facility's radiology C T exam operational policy. COMPARISON STUDIES: CT and pelvis October 29, 2014. Lungs / Pleura: There is a 2 mm noncalcified nodule immediately adjacent to the major fissure on th e right in the inferior right middle lobe which appears unchanged when compared the prior study There is an additional three mm noncalcified nodule anterolateral aspect right lower lobe also unchan ged. There are several tiny peripheral bulla in posterior aspect of the right lower lobe There is no evidence of pulmonary infiltrates or pleural effusions. The airway appears unremarkable. There appear to be low lung volumes Mediastinum/nodes: negative. Heart and vessels: negative. Musculoskeletal / Body wall: negative. Upper abdomen: Gallbladder is contracted which could be related to a recent meal IMPRESSION: There appear to be low lung volumes however no evidence of acute-appearing pulmonary infiltrates or p leural effusions Two small noncalcified pulmonary nodules in the right lung base appears stable and are of doubtful si gnificance Gallbladder is contracted which could be related to a recent meal Report Dictated By: Kell Marin MD at 07/21/2018 10:36 AM Report E-Signed By: Kell Marin MD at 07/21/2018 10:45 AM WSN:[email or web address]
[2018-07-21] MEDS ORDERED: AZIT-17 PO (14:02)
== END 2018-07-21 18:00 | disposition home or self-care (01) ==
LOC: CT 14:28 → EDSTATUS 14:28 → CT 07-21 18:00
PROVIDERS: ATTEND Emergency Medicine
DX: R05 Cough (principal); R91.1 Solitary pulmonary nodule
CPT/HCPCS: 36415; 71046; 71250; 82040; 82247; 82310; 82374; 82435; 82565; 82947; 84075; 84132; 84155; 84295; 84450; 84460; 84520; 85025; 86140

== ENCOUNTER 2018-07-24 19:49 | Emergency (ER) | payer MEDICAID ==
[~2018-07-24 19:49] MED LIST changes: +AZIT-17 PO
--- NOTE | 2018-07-24 20:02 | ER Report ---
History and Physical Time Seen By MD: 19:59 Hx. of Stated Complaint: patients has coughing, states tongue is swollen and numb, patient states has been vomiting. patient states on z-pack, has been sick, not getting any better. HPI/ROS CHIEF COMPLAINT: coughing and vomiting HISTORY OF PRESENT ILLNESS: This is a 32 year old male. He is having continued problems with cough. Has been on Augmenting, then Doxycycline, no on Azithromycin form cough and possible sinus disease. He has some congestion. Has cough that results in vomiting. Has some history of reflux as well. Recently with a normal chest x-ray and CT scan. Some chest discomfort. No diarrhea or bowel problems. Sometimes feels it is difficult to swallow with feeling of tight throat. REVIEW OF SYSTEMS: Constitutional: No fever or chills. Eyes: No discharge. No vision changes. ENT: As above. Cardiovascular: As above. Respiratory: As above. Gastrointestinal: No abdominal pain. Genitourinary: No dysuria. Musculoskeletal: No musculoskeletal pain. Skin: No rashes. Allergies: Coded Allergies: No Known Drug Allergies (Verified , 07/24/18) Home Meds Active Scripts Ondansetron (ZOFRAN ODT) 4 Mg Tab.rapdis, 4 MG PO Q6H PRN for NAUSEA/VOMITING, #20 TAB.RENA 0 Refills Prov:RAMONE PACHECO MD 07/24/18 Omeprazole (OMEPRAZOLE) 20 Mg Capsule.dr, 1 CAP PO BID, #60 CAP 0 Refills Prov:RAMONE PACHECO MD 07/24/18 Azithromycin (Z-PACK) 250 Mg Tablet, 1-2 TAB PO DIRECTED, #6 DOSE-PACK Take 2 tablets on the first day, then 1 tablet per day for four days. Prov:HARJINDER CARRERA MD 07/21/18 Guaifenesin/Codeine (GUAIFENESIN-CODEINE SYRUP) 5 Ml Syrp, 5 ML PO Q6H PRN for COUGH, #120 ML 0 Refills Prov:RAMONE PACHECO MD 07/01/18 Fluticasone Prop 50 Mcg Ns (FLONASE 50 MCG NS) 16 Gm [place].susp, 2 SPRAYS NS QDAY, #1 BOT 3 Refills Prov:CARLITOS GUERRERO MD 02/27/18 Reported Medications Buspirone Hcl (BUSPIRONE HCL) 10 Mg Tablet, 5 MG PO TID, TAB 03/16/17 Olanzapine (ZYPREXA) 10 Mg Tablet, 10 MG PO QHS 07/11/16 Sertraline Hcl (ZOLOFT) 50 Mg Tablet, 3 TAB PO QDAY, TAB 07/11/16 Discontinued Scripts Doxycycline Hyclate (DOXYCYCLINE HYCLATE) 100 Mg Tablet, 100 MG PO BID for 10 Days, #20 TAB 0 Refills Prov:RAMONE PACHECO MD 07/01/18 Amoxicillin/Pot Clav 875-125 Mg Tab (AUGMENTIN 875-125 TABLET) 1 Each Tablet, 1 TAB PO BID for 10 Days, #20 TAB 0 Refills Prov:RC NEWMAN DNP, ADULT BASIC STUDIES TEACHER-BC 06/16/18 Reviewed Nurses Notes: Yes Hx Smoking: No Smoking Status: Never Smoker, Smoker: Status Unknown, Former Smoker Exposure to Second Hand Smoke?: No Hx Substance Use Disorder: No Hx Alcohol Use: No Constitutional Vital Sign - Last 24 Hours 07/24/18 07/24/18 07/24/18 07/24/18 19:51 19:52 20:00 20:49 Temp 98.8 Pulse 104 100 Resp 16 B/P (MAP) 133/98 (110) 133/98 125/94 (104) Pulse Ox 95 95 O2 Delivery Room Air 07/24/18 07/24/18 07/24/18 21:00 21:19 21:30 Pulse 98 B/P (MAP) 124/81 (95) 122/101 (108) Pulse Ox 95 Physical Exam General Appearance: The patient is alert. No acute distress. Eyes: Pupils are equal, round. No pallor, injection or icterus. Extraocular movements are intact. ENT: Mucous membranes are moist. Normal oral mucosa. Posterior oropharynx with some post-nasal drainage, but is thin and non-purulent. Nasal mucosa is very red and angry appearing on the right side. Normal tympanic membranes, but with bilateral effusions. Neck: Supple and non tender. Respiratory: Lungs are clear to auscultation. Cardiovascular: Regular rate and rhythm. No murmurs, gallops or rubs. Normal capillary refill. Gastrointestinal: Abdomen is soft and non tender. Nondistended. Neurological: Alert and oriented x3. Skin: Warm and dry. No rashes. Musculoskeletal: No musculoskeletal pain. DIFFERENTIAL DIAGNOSIS: After history and physical exam, differential diagnosis was considered for a patient with ongoing concerns about sinusitis, recent workup with negative chest x-ray and CT scan, currently on antibiotic. Other possibilities include ongoing sinus problems, also consider reflux as a possible cause of his symptoms Medical Decision Making Data Points Result Diagram: 07/24/18202007/24/182020 Laboratory Hematology Test 07/24/18 20:21 Red Blood Count 5.65 M/uL (4.00-5.60) Mean Corpuscular Volume 78.2 fL (80.0-96.0) Mean Corpuscular Hemoglobin 27.0 pg (26.0-33.0) Mean Corpuscular Hemoglobin Concent 34.5 g/dL (32.0-36.0) Red Cell Distribution Width 14.5 % (11.5-14.5) Mean Platelet Volume 8.9 fL (7.2-11.1) Neutrophils (%) (Auto) 63.8 % (39.4-72.5) Lymphocytes (%) (Auto) 27.2 % (17.6-49.6) Monocytes (%) (Auto) 7.0 % (4.1-12.4) Eosinophils (%) (Auto) 1.4 % (0.4-6.7) Basophils (%) (Auto) 0.6 % (0.3-1.4) Nucleated RBC Relative Count (auto) 0.0 /100WBC Neutrophils # (Auto) 8.3 K/uL (2.0-7.4) Lymphocytes # (Auto) 3.5 K/uL (1.3-3.6) Monocytes # (Auto) 0.9 K/uL (0.3-1.0) Eosinophils # (Auto) 0.2 K/uL (0.0-0.5) Basophils # (Auto) 0.1 K/uL (0.0-0.1) Nucleated RBC Absolute Count (auto) 0.00 K/uL Erythrocyte Sedimentation Rate 5 mm/HOUR (0-15) Sodium Level 138 mmol/L (137-145) Potassium Level 3.7 mmol/L (3.5-5.0) Chloride Level 101 mmol/L (98-107) Carbon Dioxide Level 25 mmol/L (22-30) Blood Urea Nitrogen 9 mg/dl (9-21) Creatinine 1.10 mg/dl (0.66-1.25) Glomerular Filtration Rate Calc > 60.0 Random Glucose 147 mg/dl (75-110) Calcium Level 9.2 mg/dl (8.4-10.2) Total Bilirubin 0.5 mg/dl (0.2-1.3) Aspartate Amino Transf (AST/SGOT) 37 U/L (0-35) Alanine Aminotransferase (ALT/SGPT) 49 U/L (0-56) Alkaline Phosphatase 91 U/L (0-126) Total Protein 7.5 g/dl (6.3-8.2) Albumin 4.2 g/dl (3.5-5.0) Chemistry Test 07/24/18 20:21 White Blood Count 13.0 k/uL (4.5-11.0) Red Blood Count 5.65 M/uL (4.00-5.60) Hemoglobin 15.2 g/dL (14.0-18.0) Hematocrit 44.2 % (42.0-52.0) Mean Corpuscular Volume 78.2 fL (80.0-96.0) Mean Corpuscular Hemoglobin 27.0 pg (26.0-33.0) Mean Corpuscular Hemoglobin Concent 34.5 g/dL (32.0-36.0) Red Cell Distribution Width 14.5 % (11.5-14.5) Platelet Count 227 K/uL (150-450) Mean Platelet Volume 8.9 fL (7.2-11.1) Neutrophils (%) (Auto) 63.8 % (39.4-72.5) Lymphocytes (%) (Auto) 27.2 % (17.6-49.6) Monocytes (%) (Auto) 7.0 % (4.1-12.4) Eosinophils (%) (Auto) 1.4 % (0.4-6.7) Basophils (%) (Auto) 0.6 % (0.3-1.4) Nucleated RBC Relative Count (auto) 0.0 /100WBC Neutrophils # (Auto) 8.3 K/uL (2.0-7.4) Lymphocytes # (Auto) 3.5 K/uL (1.3-3.6) Monocytes # (Auto) 0.9 K/uL (0.3-1.0) Eosinophils # (Auto) 0.2 K/uL (0.0-0.5) Basophils # (Auto) 0.1 K/uL (0.0-0.1) Nucleated RBC Absolute Count (auto) 0.00 K/uL Erythrocyte Sedimentation Rate 5 mm/HOUR (0-15) Glomerular Filtration Rate Calc > 60.0 Calcium Level 9.2 mg/dl (8.4-10.2) Total Bilirubin 0.5 mg/dl (0.2-1.3) Aspartate Amino Transf (AST/SGOT) 37 U/L (0-35) Alanine Aminotransferase (ALT/SGPT) 49 U/L (0-56) Alkaline Phosphatase 91 U/L (0-126) Total Protein 7.5 g/dl (6.3-8.2) Albumin 4.2 g/dl (3.5-5.0) EKG/Imaging Imaging NECK SOFT TISSUE W CONTRAST HISTORY: Chronic cough. Vomiting. COMPARISON: 10/23/2013. TECHNIQUE: Axial images were obtained from the hard palate through the upper chest. Sagittal and coronal reformatted images were also obtained. One of the following dose optimization techniques was utilized in the performance of this exam: Automated exposure control; adjustment of the mA and/or kV according to the patient's size; or use of an iterative reconstruction technique. Specific details can be referenced in the facility's radiology CT exam operational policy. CONTRAST: 75 mL of IV Isovue-370. FINDINGS: Visualized orbits, brain, paranasal sinuses, and mastoids: Visible brain and orbits are normal. There is mild mucosal thickening of the right maxillary sinus. There is leftward nasal septal deviation. There is a leftward nasal septal spur. Mastoids are clear. Soft tissues: Normal. Oral cavity: Normal. There is streak artifact from dental amalgam. Pharynx/larynx: Normal. Epiglottis is normal. Esophagus: Normal. Thyroid: Normal. Vessels: Normal. The left vertebral artery arises from the aortic arch, a de velopmental variant. Lymph node assessment: No adenopathy. Bones/vertebra/musculoskeletal: There is straightening of the normal cervical lordosis. The appearance is stable. There are ununited ossification centers versus old fractures of the tips of the spinous processes of C7-T2, unchanged. There is mild degenerative disc disease at C5-6. There are anterior and posterior osteophytes at this level. Degenerative changes have progressed from the prior examination and cause mild narrowing of the right side of the thecal sac. Prevertebral soft tissues are within normal limits. Upper chest: There is mild respiratory motion artifact. Lungs are clear. IMPRESSION: 1. Unremarkable soft tissue neck. No findings to account for patient's symptoms. 2. Progression of degenerative changes at C5-6 with mild narrowing of the thecal sac on the right. Report Dictated By: Chel Begum at 07/24/2018 8:54 PM ED Course/Re-evaluation Clinical Indication for ER IV: IV Access ED Course CT scan of neck and sinuses obtained. Negative for acute process with only mild thickening of the mucosa on sinuses on the right side. Suspect this is going to be reflux related and started Omeprazole 20mg twice a day while waiting to have follow-up with Dr. Carrera. He will finish the course of the Azithromycin. Decision to Disposition Date: Jul 24, 2018 Decision to Disposition Time: 21:19 Depart Departure Latest Vital Signs Vital Signs Date Time Temp Pulse Resp B/P (MAP) Pulse Ox O2 Delivery O2 Flow Rate FiO2 07/24/18 21:30 122/101 (108) 07/24/18 21:19 98 95 07/24/18 19:52 98.8 16 Room Air Impression: Primary Impression: GERD (gastroesophageal reflux disease) Condition: Improved Disposition: HOME OR SELF-CARE Referrals: CARLITOS GUERRERO MD (PCP) New Scripts Ondansetron (ZOFRAN ODT) 4 Mg Tab.rapdis 4 MG PO Q6H PRN for NAUSEA/VOMITING, #20 TAB.RENA 0 Refills Prov: RAMONE PACHECO MD 07/24/18 Omeprazole (OMEPRAZOLE) 20 Mg Capsule. 1 CAP PO BID, #60 CAP 0 Refills Prov: RAMONE PACHECO MD 07/24/18 Patient Instructions: Gastroesophageal Reflux Disease (ED) Additional Instructions: Your CT scan of sinuses showed minimal sinus disease. We suspect your symptoms may be more related to GERD (Gastroesophageal reflux disease). Start the Medicine Omeprazole 20mg twice a day. Follow-up with Dr. Carrera as planned. Problem Qualifiers Primary Impression: GERD (gastroesophageal reflux disease) Esophagitis presence: esophagitis presence not specified Qualified Codes: K21.9 - Gastro-esophageal reflux disease without esophagitis RAMONE PACHECO MD Jul 24, 2018 20:02
[2018-07-24 20:30] LABS: PLATELET COUNT, AUTOMATED 227 K/uL (150-450)
--- NOTE | 2018-07-24 21:07 | RADIOLOGY IMAGING REPORT ---
[place] [facility] [place] NAME: Jermaine Frederick : 1985 MR: [id number] V: [id number] EXAM DATE: ORDERING PHYSICIAN: RAMONE PACHECO TECHNOLOGIST: Location: [facility] - [place] Patient: Jermaine Frederick : 1985 Visit/Account:[id number] Date of Sevice: 07/24/2018 NECK SOFT TISSUE W CONTRAST HISTORY: Chronic cough. Vomiting. COMPARISON: 10/23/2013. TECHNIQUE: Axial images were obtained from the hard palate through the upper chest. Sagittal and elva nal reformatted images were also obtained. One of the following dose optimization techniques was utilized in the performance of this exam: Autom ated exposure control; adjustment of the mA and/or kV according to the patient's size; or use of an i terative reconstruction technique. Specific details can be referenced in the facility's radiology CT exam operational policy. CONTRAST: 75 mL of IV Isovue-370. FINDINGS: Visualized orbits, brain, paranasal sinuses, and mastoids: Visible brain and orbits are normal. There is mild mucosal thickening of the right maxillary sinus. There is leftward nasal septal deviation. T here is a leftward nasal septal spur. Mastoids are clear. Soft tissues: Normal. Oral cavity: Normal. There is streak artifact from dental amalgam. Pharynx/larynx: Normal. Epiglottis is normal. Esophagus: Normal. Thyroid: Normal. Vessels: Normal. The left vertebral artery arises from the aortic arch, a developmental variant. Lymph node assessment: No adenopathy. Bones/vertebra/musculoskeletal: There is straightening of the normal cervical lordosis. The appearanc e is stable. There are ununited ossification centers versus old fractures of the tips of the spinous processes of C7-T2, unchanged. There is mild degenerative disc disease at C5-6. There are anterior an d posterior osteophytes at this level. Degenerative changes have progressed from the prior examinatio n and cause mild narrowing of the right side of the thecal sac. Prevertebral soft tissues are within normal limits. Upper chest: There is mild respiratory motion artifact. Lungs are clear. IMPRESSION: 1. Unremarkable soft tissue neck. No findings to account for patient's symptoms. 2. Progression of degenerative changes at C5-6 with mild narrowing of the thecal sac on the right. Report Dictated By: Chel Begum at 07/24/2018 8:54 PM Report E-Signed By: Chel Begum at 07/24/2018 9:03 PM WSN:[id number]
[2018-07-24] MEDS ORDERED: ONDANSETRON 4 MG ODT TH SL ONE (21:20)
[2018-07-24] MEDS ORDERED: PANTOPRAZOLE SOD 40 MG IV VIAL IVP ONE (21:20)
[2018-07-24] MEDS ORDERED: OMEP-125 PO (21:21)
[2018-07-24] MEDS ORDERED: ONDA4TAB PO (21:21)
[2018-07-24 21:30] VITALS: BP 122/101
== END 2018-07-24 21:38 | disposition home or self-care (01) ==
LOC: ER 20:07
DX: K21.9 Gastro-esophageal reflux disease without esophagitis (principal)
CPT/HCPCS: 70491; 85025; 85651; 96374; 99284; C9113; Q9967; S0119; 82040; 82247; 82310; 82374; 82435; 82565; 82947; 84075; 84132; 84155; 84295; 84450; 84460; 84520

== ENCOUNTER 2018-09-24 07:13 | Emergency (ER) | payer MEDICAID ==
[~2018-09-24 07:13] MED LIST changes: +AZEL137S NS; +OMEP-125 PO
[2018-09-24 07:18] VITALS: BP 134/102
--- NOTE | 2018-09-24 07:20 | ER Report ---
History and Physical Time Seen By MD: 07:19 HPI/ROS CHIEF COMPLAINT: Right foot pain, dental fracture HISTORY OF PRESENT ILLNESS: Patient is a 32-year-old male here with complaints of right big toe pain of the proximal 1st digit in the setting of a history of gout. Patient reports pain out of proportion of exam with mild erythema, allodynia with a history of gout flares. Patient reports that his dog slept on his foot last night but he did wake up with excruciating pain. Patient is afebrile and otherwise just complains of a upper middle dental fracture with no pulp exposure. Patient is in no acute distress at this time. Dental injury took place over the patient was eating several days ago. He has an upcoming appointment next week. REVIEW OF SYSTEMS: Constitutional: No fever, no chills. Eyes: No discharge. ENT: + upper middle dental fracture and pain Cardiovascular: No chest pain, no palpitations. Respiratory: No cough, no shortness of breath. Gastrointestinal: No abdominal pain, no vomiting. Genitourinary: No hematuria. Musculoskeletal: + Right first toe pain Skin: Mild erythema of the 1st right toe Neurological: No focal deficits Allergies: Coded Allergies: No Known Drug Allergies (Verified , 07/24/18) Home Meds Active Scripts Tramadol Hcl (TRAMADOL HCL) 50 Mg Tablet, 50 MG PO Q6H PRN for PAIN, #12 TAB 0 Refills Prov:TACHO SHIN DO 09/24/18 Colchicine (Colchicine) 0.6 Mg Capsule, 1 TAB PO QDAY PRN for PAIN, #10 TAB Prov:TACHO SHIN DO 09/24/18 Reported Medications Azelastine/Fluticasone (DYMISTA NASAL SPRAY) 23 Gm [place].pump, 23 GM NS 09/24/18 Buspirone Hcl (BUSPIRONE HCL) 10 Mg Tablet, 5 MG PO TID, TAB 03/16/17 Olanzapine (ZYPREXA) 10 Mg Tablet, 10 MG PO QHS 07/11/16 Sertraline Hcl (ZOLOFT) 50 Mg Tablet, 3 TAB PO QDAY, TAB 07/11/16 Discontinued Reported Medications Fluticasone Prop 50 Mcg Ns (FLONASE 50 MCG NS) 16 Gm [place].susp, 2 SPRAYS NS QDAY, BOT 09/01/18 Hx Smoking: No Smoking Status: Former Smoker Exposure to Second Hand Smoke?: No Hx Substance Use Disorder: No Hx Alcohol Use: No Constitutional Vital Sign - Last 24 Hours 09/24/18 07:18 Temp 97.9 Pulse 107 Resp 20 B/P (MAP) 134/102 Pulse Ox 97 Physical Exam General Appearance: The patient is alert, has no immediate need for airway protection and no signs of toxicity. NAD Eyes: Pupils equal and round no pallor or injection. ENT, Mouth: + upper middle dental fracture without pulp exposure or root exposure Neurological: No focal deficits Skin: + mild erythema of the right 1st toe Musculoskeletal: Neck is supple non tender. + pain with palpation/allodynia of right first toe DIFFERENTIAL DIAGNOSIS: After history and physical exam differential diagnosis was considered for gout flare, contusion, dental fracture, cellulitis Medical Decision Making ED Course/Re-evaluation ED Course Patient is a 32-year-old male here with complaints of dental fracture without nerve root exposure or pulp exposure. Suspected gout flare of the right 1st toe consistent with podagra, coinciding allodynia. Patient was given colchicine 1.2 mg and a prescription for subsequent dosing of 0.6 mg as well as tramadol for breakthrough pain. Patient is otherwise in no acute distress and hemodynamically stable. Examination was not consistent with cellulitis or infectious etiology or clot. Patient was well-appearing at time of discharge Decision to Disposition Date: Sep 24, 2018 Decision to Disposition Time: 07:57 Depart Departure Latest Vital Signs Vital Signs Date Time Temp Pulse Resp B/P (MAP) Pulse Ox O2 Delivery O2 Flow Rate FiO2 09/24/18 07:18 97.9 107 20 134/102 97 Impression: Primary Impression: Gout attack Additional Impression: Broken tooth Condition: Improved Disposition: HOME OR SELF-CARE Referrals: CARLITOS GUERRERO MD (PCP) New Scripts Tramadol Hcl (TRAMADOL HCL) 50 Mg Tablet 50 MG PO Q6H PRN for PAIN, #12 TAB 0 Refills Prov: TACHO SHIN DO 09/24/18 Colchicine (Colchicine) 0.6 Mg Capsule 1 TAB PO QDAY PRN for PAIN, #10 TAB Prov: TACHO SHIN S DO 09/24/18 Patient Instructions: Gout (ED), Toothache (ED) Additional Instructions: You may take 1 tablet of Colchicine daily until suspected gout flare is terminated. You may take 1 tablet of tramadol every 6-8 hours as needed for breakthrough pain. Please keep your dentistry appointment as scheduled. Please return if you develop worsening pain, fevers, spreading rash. Problem Qualifiers TACHO SHIN DO Sep 24, 2018 07:20
[2018-09-24] MEDS ORDERED: AZEL23SP NS (07:28)
[2018-09-24] MEDS ORDERED: KETOROLAC 60 MG/2 ML VIAL IM ONE (07:30)
[2018-09-24] MEDS ORDERED: traMADol 50 MG TAB PO ONE (07:40)
[2018-09-24] MEDS ORDERED: COLCHICINE 0.6 MG TAB PO ONE (07:40)
[2018-09-24] MEDS ORDERED: TRAM-420 PO (07:47)
[2018-09-24] MEDS ORDERED: COLC0.6C3 PO (07:47)
[2018-09-26] MEDS ORDERED: AZEL137S NS (11:55)
== END 2018-09-24 08:08 | disposition home or self-care (01) ==
LOC: ER 07:43
DX: M10.9 Gout, unspecified (principal); S02.5XXA Fracture of tooth (traumatic), initial encounter for closed fracture
CPT/HCPCS: 99282

== ENCOUNTER 2018-10-12 03:35 | Emergency (ER) | payer MEDICAID ==
[~2018-10-12 03:35] MED LIST changes: +AZEL23SP NS; +COLC0.6C3 PO
--- NOTE | 2018-10-12 03:38 | ER Report ---
History and Physical Time Seen By : 03:39 HPI/ROS CHIEF COMPLAINT: Right toe pain HISTORY OF PRESENT ILLNESS: A 32-year-old male with a long history of gout. He was seen here several weeks ago. Patient was treated with colchicine and tramadol for pain relief. He responded well. He is follow-up with his primary care and was going to restart allopurinol, but he failed to get a blood draw to document his level of uric acid. She woke up with severe pain. He moved his foot and felt a popping sensation. He has a grossly erythematous and tender toe. Allergies: Coded Allergies: No Known Drug Allergies (Verified , 07/24/18) Home Meds Active Scripts Prednisone (PREDNISONE) 20 Mg Tablet, 20 MG PO QDAY for gout attack treatment, #9 2 by mouth daily for 3 days then 1 by mouth daily for 3 days Prov:MERRILLHAY DO 10/12/18 Tramadol Hcl (TRAMADOL HCL) 50 Mg Tablet, 50-100 MG PO Q6H PRN for PAIN, #20 MG TAKE ONE TO TWO TABLETS BY MOUTH EVERY FOUR TO SIX HOURS NEEDED Prov:HAY MOMIN DO 10/12/18 Amoxicillin/Pot Clav 875-125 Mg Tab (AUGMENTIN 875-125 TABLET) 1 Each Tablet, 1 TAB PO BID for 10 Days, #20 TAB 0 Refills Prov:NEY LOZOYA APRN INDUSTRIAL MAINTENANCE INSTRUCTOR-C 10/03/18 Azelastine Hcl 0.1% [place] (AZELASTINE HCL 0.1% SPRAY) 137 Mcg/0.137 Ml [place].pump, 1 SPRAYS NS BID for 30 Days, #1 BOT 11 Refills Prov:MALLIKA JO JR, MD 09/26/18 Reported Medications Buspirone Hcl (BUSPIRONE HCL) 10 Mg Tablet, 5 MG PO TID, TAB 03/16/17 Olanzapine (ZYPREXA) 10 Mg Tablet, 10 MG PO QHS 07/11/16 Sertraline Hcl (ZOLOFT) 50 Mg Tablet, 3 TAB PO QDAY, TAB 07/11/16 Discontinued Scripts Tramadol Hcl (TRAMADOL HCL) 50 Mg Tablet, 50 MG PO Q6H PRN for PAIN, #12 TAB 0 Refills Prov:TACHO SHIN DO 09/24/18 Past Medical/Surgical History Mental health disorder, gout Reviewed Nurses Notes: Yes Old Medical Records Reviewed: Yes Hx Smoking: No Smoking Status: Former Smoker Exposure to Second Hand Smoke?: No Hx Substance Use Disorder: No Hx Alcohol Use: No Constitutional Vital Sign - Last 24 Hours 10/12/18 03:46 Temp 98.3 Pulse 89 Resp 16 Pulse Ox 95 O2 Delivery Room Air Physical Exam General appearance: Moderate distress Respiratory: Chest is non tender, lungs are clear to auscultation. Cardiac: Regular rate and rhythm Extremities: Examination of the right foot reveals a grossly erythematous and very tender right great 1st toe. Consistent with gout flare DIFFERENTIAL DIAGNOSIS: After history and physical exam differential diagnosis was considered for arthritis, gout, cellulitis, septic joint. Medical Decision Making ED Course/Re-evaluation ED Course Patient was admitted to an examination room. H&P was done. The differential diagnoses was considered. On conical examination. Patient has gout clinically and his right great toe. He'll be treated with prednisone and tramadol. He is advised to follow-up with his primary care doctor next week for uric acid level and resumption of allopurinol. Decision to Disposition Date: Oct 12, 2018 Decision to Disposition Time: 03:47 Depart Departure Latest Vital Signs Vital Signs Date Time Temp Pulse Resp B/P (MAP) Pulse Ox O2 Delivery O2 Flow Rate FiO2 10/12/18 03:46 98.3 89 16 95 Room Air Impression: Primary Impression: Gouty arthritis of toe of right foot Condition: Improved Disposition: HOME OR SELF-CARE Referrals: CARLITOS GUERRERO MD (PCP) New Scripts Prednisone (PREDNISONE) 20 Mg Tablet 20 MG PO QDAY for gout attack treatment, #9 2 by mouth daily for 3 days then 1 by mouth daily for 3 days Prov: HAY MOMIN DO 10/12/18 Tramadol Hcl (TRAMADOL HCL) 50 Mg Tablet 50-100 MG PO Q6H PRN for PAIN, #20 MG TAKE ONE TO TWO TABLETS BY MOUTH EVERY FOUR TO SIX HOURS NEEDED Prov: HAY MOMIN DO 10/12/18 Patient Instructions: Gout (ED) Additional Instructions: Follow-up with primary care if unimproved in 3-5 days HAY MOMIN DO Oct 12, 2018 03:38
[2018-10-12] MEDS ORDERED: TRAM-420 PO (03:49)
[2018-10-12] MEDS ORDERED: PRED20TA6 PO (03:49)
[2018-10-12] MEDS ORDERED: traMADol 50 MG TAB TH 2 TAB/BOTTLE PO ONE (03:50)
[2018-10-12] MEDS ORDERED: predniSONE 20 MG TAB PO ONE (03:50)
== END 2018-10-12 04:32 | disposition home or self-care (01) ==
LOC: ER 04:06
DX: M10.071 Idiopathic gout, right ankle and foot (principal)
CPT/HCPCS: 99283; C9399; J7512

== ENCOUNTER 2018-10-24 23:03 | Emergency (ER) | payer MEDICAID ==
--- NOTE | 2018-10-24 23:12 | ER Report ---
History and Physical Time Seen By MD: 23:11 HPI/ROS CHIEF COMPLAINT: Right great toe pain HISTORY OF PRESENT ILLNESS: 32-year-old male with a known history of gout seen here several weeks ago with a gout attack. He returns now with 2-3 days of severe toe pain. He is unable to sleep tonight which prompted him to come to ER. Left of her tramadol, which he took, which is not helping. Patient was so much pain. He's vomiting. Patient reports 10 out of 10 pain of his right MTP joint. She reports dropping a couch and a box on his toe to aggravate his gout. Patient states he called his primary care physician couple days ago. He is unable to get in for another week. REVIEW OF SYSTEMS: Respiratory: No cough, no dyspnea. Cardiovascular: No chest pain, no palpitations. Gastrointestinal: No vomiting, no abdominal pain. Musculoskeletal: As above Allergies: Coded Allergies: No Known Drug Allergies (Verified , 07/24/18) Home Meds Active Scripts Tramadol Hcl (TRAMADOL HCL) 50 Mg Tablet, 50-100 MG PO Q4-6H PRN for PAIN, #15 MG TAKE ONE TO TWO TABLETS BY MOUTH EVERY FOUR TO SIX HOURS NEEDED Prov:HAY MOMIN DO 10/24/18 Prednisone (PREDNISONE) 20 Mg Tablet, 40 MG PO QDAY for reduce inflammation, #12 2 by mouth daily for 4 days then 1 by mouth daily for 4 days Prov:HAY MOMIN DO 10/24/18 Tramadol Hcl (TRAMADOL HCL) 50 Mg Tablet, 50-100 MG PO Q6H PRN for PAIN, #20 MG TAKE ONE TO TWO TABLETS BY MOUTH EVERY FOUR TO SIX HOURS NEEDED Prov:HAY MOMIN DO 10/12/18 Azelastine Hcl 0.1% [place] (AZELASTINE HCL 0.1% SPRAY) 137 Mcg/0.137 Ml [place].pump, 1 SPRAYS NS BID for 30 Days, #1 BOT 11 Refills Prov:MALLIKA JO JR, MD 09/26/18 Reported Medications Buspirone Hcl (BUSPIRONE HCL) 10 Mg Tablet, 5 MG PO TID, TAB 03/16/17 Olanzapine (ZYPREXA) 10 Mg Tablet, 10 MG PO QHS 07/11/16 Sertraline Hcl (ZOLOFT) 50 Mg Tablet, 3 TAB PO QDAY, TAB 07/11/16 Discontinued Scripts Prednisone (PREDNISONE) 20 Mg Tablet, 20 MG PO QDAY for gout attack treatment, #9 2 by mouth daily for 3 days then 1 by mouth daily for 3 days Prov:HAY MOMIN DO 10/12/18 Amoxicillin/Pot Clav 875-125 Mg Tab (AUGMENTIN 875-125 TABLET) 1 Each Tablet, 1 TAB PO BID for 10 Days, #20 TAB 0 Refills Prov:NEY LOZOYA APRN [employer]OP SUPERVISOR-C 10/03/18 Reviewed Nurses Notes: Yes Old Medical Records Reviewed: Yes Hx Smoking: No Smoking Status: Former Smoker Exposure to Second Hand Smoke?: No Hx Substance Use Disorder: No Hx Alcohol Use: No Constitutional Vital Sign - Last 24 Hours 10/24/18 10/24/18 10/24/18 10/24/18 23:10 23:10 23:15 23:30 Temp 97.7 Pulse 97 88 86 Resp 18 B/P (MAP) 99/66 96/66 (76) 131/81 (98) Pulse Ox 98 95 93 O2 Delivery Room Air 10/24/18 23:45 Pulse 84 Pulse Ox 91 Physical Exam General appearance: Alert no distress. Respiratory: Chest is non tender, lungs are clear to auscultation. Cardiac: Regular rate and rhythm Extremities: Right foot with gross soft tissue swelling around the 1st MTP. Very tender to palpation. All digits are neurovascularly intact. DIFFERENTIAL DIAGNOSIS: After history and physical exam differential diagnosis was considered for gout, arthritis, cellulitis, trauma Medical Decision Making ED Course/Re-evaluation ED Course Patient was admitted to his examination room. H&P. Diagnoses was considered. On clinical examination. He has a swollen right great toe consistent with gout flare. Patient be treated with prednisone taper. Again. He is given 60 no grams of prednisone here. Social treated with Zofran and Phenergan. She is given a prescription for tramadol for additional pain relief. He is advised to follow-up with primary care as planned in one week. Decision to Disposition Date: Oct 24, 2018 Decision to Disposition Time: 23:25 Depart Departure Latest Vital Signs Vital Signs Date Time Temp Pulse Resp B/P (MAP) Pulse Ox O2 Delivery O2 Flow Rate FiO2 10/24/18 23:45 84 91 10/24/18 23:30 131/81 (98) 10/24/18 23:10 97.7 18 Room Air Impression: Primary Impression: Gouty arthritis of toe of right foot Condition: Improved Disposition: HOME OR SELF-CARE Referrals: CARLITOS GUERRERO MD (PCP) New Scripts Tramadol Hcl (TRAMADOL HCL) 50 Mg Tablet 50-100 MG PO Q4-6H PRN for PAIN, #15 MG TAKE ONE TO TWO TABLETS BY MOUTH EVERY FOUR TO SIX HOURS NEEDED Prov: HAY MOMIN DO 10/24/18 Prednisone (PREDNISONE) 20 Mg Tablet 40 MG PO QDAY for reduce inflammation, #12 2 by mouth daily for 4 days then 1 by mouth daily for 4 days Prov: HAY MOMIN DO 10/24/18 Patient Instructions: Gout (ED) Additional Instructions: Follow-up with primary care as planned HAY MOMIN DO Oct 24, 2018 23:12
[2018-10-24] MEDS ORDERED: ONDANSETRON 4 MG ODT TABDP SL ONE (23:25)
[2018-10-24] MEDS ORDERED: PROMETHAZINE HCL 25 MG TAB PO ONE (23:25)
[2018-10-24] MEDS ORDERED: predniSONE 20 MG TAB PO ONE (23:25)
[2018-10-24] MEDS ORDERED: IBUPROFEN 600 MG TAB PO ONE (23:25)
[2018-10-24] MEDS ORDERED: TRAM-420 PO (23:27)
[2018-10-24] MEDS ORDERED: PRED20TA6 PO (23:27)
[2018-10-24 23:30] VITALS: BP 131/81
== END 2018-10-24 23:53 | disposition home or self-care (01) ==
LOC: ER 23:45
DX: M10.071 Idiopathic gout, right ankle and foot (principal)
CPT/HCPCS: 99283; J7512; Q0169; S0119

== ENCOUNTER → 2018-11-01 | Outpatient (CLI) | payer MEDICAID ==
[~2018-11-01] MED LIST changes: +METF500T4 PO; +PRED-420 PO
[2018-11-01 16:22] LABS: PLATELET COUNT, AUTOMATED 291 K/uL (150-450)
== END ==
LOC: LAB 15:57
PROVIDERS: ATTEND Internal Medicine
DX: M10.9 Gout, unspecified (principal); R53.83 Other fatigue; R73.9 Hyperglycemia, unspecified
CPT/HCPCS: 36415; 82040; 82247; 82310; 82374; 82435; 82565; 82947; 83036; 84075; 84132; 84155; 84295; 84443; 84450; 84460; 84520; 84550; 85025

== ENCOUNTER 2019-03-25 13:59 | Emergency (ER) | payer SELFPAY ==
[2019-03-25 14:19] VITALS: BP 135/96
--- NOTE | 2019-03-25 14:20 | ER Report ---
History and Physical Time Seen By MD: 14:20 HPI/ROS CHIEF COMPLAINT: Left ankle pain HISTORY OF PRESENT ILLNESS: 33-year-old male patient presents to emergency room with complaint of left ankle pain. Patient states that he has been having pain since . He states on he twisted his ankle and fell. He states since incident having significant amounts of pain. States the pain is worse whenever he has to move his ankle. He states that he has no fevers or chills. Patient does have a history of gout, however he states that the gout does feel different and the pain is having now. Patient denies any numbness or tingling in foot. Patient states that he typically feels better if he doesn't have to move his foot. Allergies: Coded Allergies: No Known Drug Allergies (Verified , 07/24/18) Home Meds Active Scripts Ketorolac Tromethamine (KETOROLAC TROMETHAMINE) 10 Mg Tab, 10 MG PO Q6H, #20 TAB Prov:AGUSTÍN HIRSCH 03/25/19 Metformin Hcl (METFORMIN HCL ER) 500 Mg Tab.er.24, 2 TAB PO QPM, #60 TAB 1 Refill 1 tablet for 3 days than 2 tablets daily Prov:CARLITOS GUERRERO MD 11/02/18 Allopurinol (ZYLOPRIM) 300 Mg Tablet, 300 MG PO QDAY, #30 TAB 6 Refills Prov:CARLITOS GUERRERO MD 11/01/18 Azelastine Hcl 0.1% [place] (AZELASTINE HCL 0.1% SPRAY) 137 Mcg/0.137 Ml [place].pump, 1 SPRAYS NS BID for 30 Days, #1 BOT 11 Refills Prov:MALLIKA JO JR, MD 09/26/18 Reported Medications Risperidone (RISPERIDONE) 1 Mg Tablet, 0.5 MG PO DAILY 03/25/19 Buspirone Hcl (BUSPIRONE HCL) 10 Mg Tablet, 5 MG PO TID, TAB 03/16/17 Sertraline Hcl (ZOLOFT) 50 Mg Tablet, 3 TAB PO QDAY, TAB 07/11/16 Discontinued Reported Medications Olanzapine (ZYPREXA) 10 Mg Tablet, 10 MG PO QHS 07/11/16 Past Medical/Surgical History Patient has a past medical history of migraines, hypertension, asthma, diabetes, gout, depression, anxiety, suicide attempt. Patient denies any surgical history. Reviewed Nurses Notes: Yes Hx Smoking: No Smoking Status: Former Smoker Exposure to Second Hand Smoke?: No Hx Substance Use Disorder: No Hx Alcohol Use: No Constitutional Vital Sign - Last 24 Hours 03/25/19 14:19 Temp 98.5 Pulse 114 Resp 20 B/P (MAP) 135/96 Pulse Ox 96 O2 Delivery Room Air Physical Exam General Appearance: The patient is alert, has no immediate need for airway protection and no current signs of toxicity. Respiratory: Chest is non tender, lungs are clear to auscultation. Cardiac: regular rate and rhythm Musculoskeletal: Extremities have full range of motion and are non tender. Patient has no obvious swelling or erythema to the left ankle. Patient does have tenderness around the ankle joint bilaterally. Skin: No rashes or lesions. DIFFERENTIAL DIAGNOSIS: After history and physical exam differential diagnosis was considered for ankle sprain, ankle contusion, fracture, gout flare. Medical Decision Making EKG/Imaging Imaging FOOT 3 VIEW LEFT, ANKLE 3 VIEW MIN LEFT History: Left ankle and left foot pain. Comparison study: None. Findings: Left foot: There is no fracture or dislocation involving the left foot. The metatarsals are intact. Left ankle: There is no fracture involving the left ankle. There is mild lateral soft tissue swelling but no findings of an avulsion fracture. IMPRESSION: 1. Normal images of the left foot. 2. Soft tissue swelling over the left lateral malleolus without findings of a fracture. Report Dictated By: Aurelio Mccauley MD at 03/25/2019 3:10 PM Report E-Signed By: Aurelio Mccauley MD at 03/25/2019 3:11 PM ED Course/Re-evaluation ED Course Patient was admitted to exam room, history and physical were obtained. Differential diagnoses were considered. On examination lungs are clear, heart is regular, abdomen soft nontender. Patient does have tenderness to bilateral aspects of the left ankle. An x-ray was done of the left ankle left foot. The results were negative. With patient having a history of gout I did have concerns that this could be a gouty flareup, however there is no erythema, there is no heat. He also has a known injury which makes a gout flareup more unlikely. Patient was treated with an Mesfin wrap. We will go ahead and discharge patient home at this time. Patient was given a prescription for Toradol. He is to ice his ankle 2 or 3 times a day for the next several days. He is to return to emergency room if condition worsens. I would like him follow-up with his primary care provider if pain persists. Patient verbalized understanding and agreement with plan. Decision to Disposition Date: March 25, 2019 Decision to Disposition Time: 15:19 Depart Departure Latest Vital Signs Vital Signs Date Time Temp Pulse Resp B/P (MAP) Pulse Ox O2 Delivery O2 Flow Rate FiO2 03/25/19 14:19 98.5 114 20 135/96 96 Room Air Impression: Primary Impression: Ankle sprain Condition: Improved Disposition: HOME OR SELF-CARE Referrals: CARLITOS GUERRERO MD (PCP) New Scripts Ketorolac Tromethamine (KETOROLAC TROMETHAMINE) 10 Mg Tab 10 MG PO Q6H, #20 TAB Prov: AGUSTÍN HIRSCH 03/25/19 Patient Instructions: Ankle Sprain (ED) Additional Instructions: Limit activity by pain. Ice the ankle 2-3 times a day. Get plenty of rest. Follow up with your primary care provider if pain persists. Return to the ER if condition worsens. Take the medication as prescribed. Don't take any Advil, Motrin, Ibuprofen, Naprox or Aleve while taking the prescription. Problem Qualifiers Primary Impression: Ankle sprain Encounter type: initial encounter Involved ligament of ankle: unspecified ligament Laterality: left Qualified Codes: S93.402A - Sprain of unspecified ligament of left ankle, initial encounter AGUSTÍN HIRSCH March 25, 2019 14:20
[2019-03-25] MEDS ORDERED: RISP1TAB79 PO (14:22)
--- NOTE | 2019-03-25 15:15 | RADIOLOGY IMAGING REPORT ---
FACILITY: [facility] - [place] PATIENT NAME: Jermaine Frederick : 1985 MR: [id number] V: [id number] EXAM DATE: ORDERING PHYSICIAN: AGUSTÍN HIRSCH TECHNOLOGIST: Location: [facility] Patient: Jermaine Frederick : 1985 Visit/Account:[id number] Date of Sevice: 03/25/2019 FOOT 3 VIEW LEFT, ANKLE 3 VIEW MIN LEFT History: Left ankle and left foot pain. Comparison study: None. Findings: Left foot: There is no fracture or dislocation involving the left foot. The metatarsals ar e intact. Left ankle: There is no fracture involving the left ankle. There is mild lateral soft tissue swelling but no findings of an avulsion fracture. IMPRESSION: 1. Normal images of the left foot. 2. Soft tissue swelling over the left lateral malleolus without findings of a fracture. Report Dictated By: Aurelio Mccauley MD at 03/25/2019 3:10 PM Report E-Signed By: Aurelio Mccauley MD at 03/25/2019 3:11 PM WSN:[id number]
--- NOTE | 2019-03-25 15:15 | RADIOLOGY IMAGING REPORT ---
FACILITY: [facility] - [place] PATIENT NAME: Jermaine Frederick : 1985 MR: [id number] V: [id number] EXAM DATE: ORDERING PHYSICIAN: AGUSTÍN HIRSCH TECHNOLOGIST: Location: [facility] Patient: Jermaine Frederick : 1985 Visit/Account:[id number] Date of Sevice: 03/25/2019 FOOT 3 VIEW LEFT, ANKLE 3 VIEW MIN LEFT History: Left ankle and left foot pain. Comparison study: None. Findings: Left foot: There is no fracture or dislocation involving the left foot. The metatarsals ar e intact. Left ankle: There is no fracture involving the left ankle. There is mild lateral soft tissue swelling but no findings of an avulsion fracture. IMPRESSION: 1. Normal images of the left foot. 2. Soft tissue swelling over the left lateral malleolus without findings of a fracture. Report Dictated By: Aurelio Mccauley MD at 03/25/2019 3:10 PM Report E-Signed By: Aurelio Mccauley MD at 03/25/2019 3:11 PM WSN:[id number]
[2019-03-25] MEDS ORDERED: KET10 PO (15:17)
== END 2019-03-25 15:28 | disposition home or self-care (01) ==
LOC: ER 14:25
DX: S93.402A Sprain of unspecified ligament of left ankle, initial encounter (principal)
CPT/HCPCS: 99284